=== PATIENT | female | born 1965 | race Caucasian/White ===

== ENCOUNTER 2018-05-25 12:09 | Emergency (ER) | payer OTHER ==
[~2018-05-25] VITALS: Ht 160 cm; Wt 108.3 kg
[2018-05-25 12:23] VITALS: Ht 160 cm; Wt 108.3 kg
[2018-05-25] MEDS ORDERED: LISI40TA3 PO (14:14)
[2018-05-25] MEDS ORDERED: METO-319 PO (14:14)
[2018-05-25] MEDS ORDERED: FOLI-49 PO (14:14)
[2018-05-25] MEDS ORDERED: PANT20TA3 PO (14:15)
[2018-05-25] MEDS ORDERED: KETOROLAC 30 MG INJ IV STA (14:30)
--- NOTE | 2018-05-25 15:47 | ERD ---
ER Documentation Chief Complaint Chief Complaint rctal bleed x 2 wks. dark blood with clots. seen at [facility] and discharg HPI 52-year-old female presenting with rectal bleeding for the past 2 weeks. She states that the bleeding is red with clots. She was seen at [facility] yesterday where she had a CT abdomen and pelvis done showing diverticulosis without any other abnormalities. She also had blood work which showed hemoglobin of 14. She was sent home and told to follow-up with her primary care doctor. Patient went to her primary care doctor today, who subsequently sent her back to the ED for emergent colonoscopy. Reportedly she has a colonoscopy scheduled for September 2018, but her PCP does not think she should wait that long. Patient denies any associated abdominal pain, nausea, vomiting, dizziness, chest pain, shortness of breath. No fevers or chills. She does have a history of both internal and external hemorrhoids. She denies taking any blood thinners. No history of coagulopathy. She does complain of rectal pressure and pain. ROS All systems reviewed and are negative except as per history of present illness. Medications Home Meds Reported Medications Pantoprazole* (Pantoprazole*) 20 Mg Tablet.dr, 20 MG PO AC BREAKFAST, TAB 05/25/18 Folic Acid* (Folic Acid*) 1 Mg Tablet, 1 MG PO DAILY, TAB 05/25/18 Lisinopril* (Lisinopril*) 40 Mg Tablet, 40 MG PO DAILY, #30 TAB 05/25/18 Metoprolol Succinate* (Toprol XL*) 50 Mg Tab.er.24h, 50 MG PO QPM, #30 TAB 05/25/18 Allergies Allergies: Coded Allergies: No Known Allergy (Unverified , 05/25/18) PMhx/Soc History of Surgery: Yes (CHOLECYSTECTOMY, HYSTERECTOMY, APPENDECTOMY) Anesthesia Reaction: No Hx Neurological Disorder: No Hx Respiratory Disorders: No Hx Cardiac Disorders: No Hx Psychiatric Problems: No Hx Miscellaneous Medical Probl: Yes (HTN, CHOLESTEROL, MIGRAINES) Hx Alcohol Use: No Hx Substance Use: No Hx Tobacco Use: No Smoking Status: Never smoker FmHx Family History: No diabetes Physical Exam Vitals Vital Signs Date Temp Pulse Resp B/P (MAP) Pulse Ox O2 O2 Flow FiO2 Time Delivery Rate 05/25/18 98.2 64 18 143/77 97 12:23 (99) Physical Exam Const: No acute distress Head: Atraumatic Eyes: Normal Conjunctiva ENT: Normal External Ears, Nose and Mouth. Neck: Full range of motion. No meningismus. Resp: Clear to auscultation bilaterally Cardio: Regular rate and rhythm, no murmurs Abd: Soft, non tender, non distended. Normal bowel sounds Skin: No petechiae or rashes Back: No midline or flank tenderness Rectal: No external hemorrhoids noted, no anal fissures. No erythema around the rectum. No blood in the rectal vault. Unable to collect any stool. Ext: No cyanosis, or edema Neur: Awake and alert Psych: Normal Mood and Affect Result Diagram: 05/25/18 1351 05/25/18 1351 Results 24 hrs Laboratory Tests Test 05/25/18 13:51 White Blood Count 9.5 10^3/ul Red Blood Count 4.94 10^6/ul Hemoglobin 14.2 g/dl Hematocrit 44.6 % Mean Corpuscular Volume 90.3 fl Mean Corpuscular Hemoglobin 28.7 pg Mean Corpuscular Hemoglobin Concent 31.8 g/dl Red Cell Distribution Width 14.0 % Platelet Count 305 10^3/UL Mean Platelet Volume 11.0 fl Immature Granulocytes % 0.200 % Neutrophils % 72.5 % Lymphocytes % 21.1 % Monocytes % 4.2 % Eosinophils % 1.7 % Basophils % 0.3 % Nucleated Red Blood Cells % 0.0 /100WBC Immature Granulocytes # 0.020 10^3/ul Neutrophils # 6.9 10^3/ul Lymphocytes # 2.0 10^3/ul Monocytes # 0.4 10^3/ul Eosinophils # 0.2 10^3/ul Basophils # 0.0 10^3/ul Nucleated Red Blood Cells # 0.0 10^3/ul Prothrombin Time 12.9 Sec Prothrombin Time Ratio 1.0 INR International Normalized Ratio 0.96 Activated Partial Thromboplast Time 29.2 Sec Sodium Level 141 mmol/L Potassium Level 4.0 mmol/L Chloride Level 105 mmol/L Carbon Dioxide Level 29 mmol/L Anion Gap 7 Blood Urea Nitrogen 12 mg/dl Creatinine 0.56 mg/dl Est Glomerular Filtrat Rate mL/min > 60 mL/min Glucose Level 94 mg/dl Calcium Level 9.0 mg/dl Total Bilirubin 0.1 mg/dl Direct Bilirubin 0.00 mg/dl Indirect Bilirubin 0.1 mg/dl Aspartate Amino Transf (AST/SGOT) 21 IU/L Alanine Aminotransferase (ALT/SGPT) 13 IU/L Alkaline Phosphatase 85 IU/L Total Protein 8.0 g/dl Albumin 4.1 g/dl Globulin 3.90 g/dl Albumin/Globulin Ratio 1.05 Current Medications Medications Dose Sig/Shanelle Start Time Status Last (Trade) Ordered Route PRN Stop Time Admin Dose Reason Admin Ketorolac 30 mg ONCE STAT 05/25/18 DC 05/25/18 Tromethamine IV 14:30 05/25/18 14:37 (Toradol) 14:31 Procedures/MDM EMERGENT LABS AND DIAGNOSTIC STUDIES: Lab Results above were reviewed and interpreted by me. CBC: no anemia or evidence of infection CMP: No evidence of electrolyte abnormality, renal failure, hypoglycemia, liver failure, or biliary obstruction Coags wnl, no coagulopathy Initial Nursing notes reviewed. Previous Medical Records requested via the Electronic Health Record. EMERGENCY DEPARTMENT COURSE / MEDICAL DECISION MAKING: Patient is presenting with over 2 weeks of rectal bleeding. She is hemodynamically stable without any signs or symptoms of anemia. I spoke with her insurance company and the admitting doctor at [facility] where the patient would be transferred. Dr. Fatima does not think that the patient needs admission. I agree that the patient does not meet criteria for admission as she is hemodynamically stable without any active bleeding on exam. I spoke with the case resource manager for [facility] group. I urged them to assist the patient in getting a colonoscopy scheduled sooner and they were very agreeable. I explained this to the patient and her daughter and they are happy with the discharge plan. Return precautions were discussed. Patient's blood pressure was elevated (>120/80) but appears stable without evidence of hypertensive emergency or urgency. The patient was counseled about the risks of hypertension and urged to pursue outpatient monitoring and therapy within a week with their primary care physician. Departure Diagnosis: Primary Impression: Lower gastrointestinal bleed Condition: Stable Patient Instructions: Rectal Bleed, Stable Additional Instructions: Hable con bates mdico para tratar de programar papa colonoscopia antes de garcia. Regrese a la gail de emergencias si tiene sntomas que empeoran. BLAYNE LATHAM MD May 25, 2018 15:44
[2018-05-25 16:07] VITALS: BP 129/62; PULSE 59; RESP 16
== END 2018-05-25 16:09 | disposition home or self-care (01) ==
LOC: E/R 12:09
DX: K92.2 Gastrointestinal hemorrhage, unspecified (principal); I10 Essential (primary) hypertension
CPT/HCPCS: 80053; 85025; 85610; 85730; 86850; 86900; 86901; 96372; J1885; Z7502

== ENCOUNTER 2019-01-15 08:55 | Emergency (ER) | payer OTHER ==
[~2019-01-15] VITALS: Ht 157.5 cm; Wt 107.0 kg
[~2019-01-15 08:55] MED LIST: AMLO5TAB4 PO; ERGO500013 PO; FOLI-49 PO; HYDR200T39 PO; LACO150T2 PO; LISI40TA3 PO; LORA-441 PO; LORA10TA3 PO; METO-319 PO; PANT20TA3 PO; PANT40TA4 PO; PRED5TAB PO; TOPI50TA13 PO
[2019-01-15 09:05] VITALS: Ht 157.5 cm; Wt 107.0 kg
[2019-01-15 11:00] VITALS: BP 98/64; PULSE 63; RESP 18
== END 2019-01-15 11:00 | disposition home or self-care (01) ==
LOC: E/R 08:55
DX: R20.2 Paresthesia of skin (principal); R40.2142 Coma scale, eyes open, spontaneous, at arrival to emergency department; R40.2362 Coma scale, best motor response, obeys commands, at arrival to emergency department; R40.2252 Coma scale, best verbal response, oriented, at arrival to emergency department; I10 Essential (primary) hypertension
CPT/HCPCS: 93005; Z7502